=== PATIENT | female | born 1965 | race Caucasian/White ===

== ENCOUNTER 2021-09-12 12:48 | Observation (INO) ==
[2021-09-12 14:49] LABS: Basophils # 0.1 K/mcL (0.0-0.2); Basophils % 0.5 %; Eosinophils % 0.1 %; Hematocrit 46.6 % (35.3-44.9); Hemoglobin 15.1 g/dL (11.5-15.4); Immature Granulocytes % 0.5 % (0-4); Lymphocytes # 1.3 K/mcL (0.6-4.6); Lymphocytes % 7.2 %; Mean Corpuscular HGB Conc 32.4 g/dL (31.6-35.5); Mean Corpuscular Hemoglobin 28.9 pg (28.0-33.3); Mean Corpuscular Volume 89.1 fL (83.0-100.0); Mean Platelet Volume 9.1 fL (9.4-12.4); Monocytes # 1.3 K/mcL (0.0-1.3); Monocytes % 7.6 %; Neutrophils # 14.9 K/mcL (1.6-8.9); Platelet Count 390 K/mcL (140-400); Red Blood Count 5.23 M/mcL (3.82-4.97); Red Cell Distribution Width 14.2 % (11.5-14.5); Segmented Neutrophils % 84.1 %; White Blood Count 17.7 K/mcL (4.3-11.1)
[2021-09-12 14:58] LABS: INR 1.1; Prothrombin Time 12.6 Seconds (9.4-12.1)
[2021-09-12 15:01] LABS: Activated Partial Thrombo Time 37.7 Seconds (26.0-36.0)
[2021-09-12 15:13] LABS: Alanine Aminotransferase 27 Units/L (7-52); Albumin 4.5 g/dL (3.5-5.7); Albumin/Globulin Ratio 1.6 (1.1-2.2); Alkaline Phosphatase 77 Units/L (34-104); Aspartate Amino Transferase 89 Units/L (13-39); BUN/Creatinine Ratio 10 (6-26); Bilirubin,Direct 0.1 mg/dL (0.0-0.2); Bilirubin,Indirect 0.5 mg/dL (0.0-1.0); Bilirubin,Total 0.6 mg/dL (0.3-1.0); Blood Urea Nitrogen 6 mg/dL (6-20); Calcium 9.9 mg/dL (8.6-10.3); Carbon Dioxide 28 mEq/L (23-29); Chloride 98 mEq/L (98-107); Ethanol < 10 mg/dL (Less than 10); Globulin 2.8 g/dL (2.4-3.5); Glucose 105 mg/dL (70-105); Osmolality,Calculated 276 (280-300); Potassium 4.2 mEq/L (3.5-5.1); Sodium 134 mEq/L (136-145); Total Protein 7.3 g/dL (6.4-8.9); Troponin I < 0.03 ng/mL (< 0.04); eGFR For African Americans > 60 (> 60); eGFR For Non-African Americans > 60 (> 60)
[2021-09-12] MEDS ORDERED: 0.9 % Sodium Chloride 1,000 ML IV ONE ×2 (15:41→15:43)
[2021-09-12] MEDS ORDERED: Nicotine 2 MG GUM BC PRN (16:43)
[2021-09-12] MEDS ORDERED: Ringers Solution, Lactated 1,000 ML IVC SCH (16:45)
[2021-09-12] MEDS ORDERED: Melatonin 3 MG TABLET PO PRN (17:08)
[2021-09-12] MEDS ORDERED: Ondansetron 4 MG/2 ML VIAL IVP PRN (17:08)
[2021-09-12] MEDS: Ringers Solution, Lactated 1,000 ML IVC SCH (18:22)
[2021-09-12] MEDS: Nicotine 14 MG PATCH.TD24 TD SCH (18:22)
[2021-09-12] MEDS: Acetaminophen 325 MG TABLET PO PRN (21:14)
[2021-09-13 01:35] LABS: Bilirubin,Urine Negative (Negative); Blood,Urine Negative (Negative); Clarity,Urine Clear (Clear); Color,Urine Light-Yellow (Yellow); Glucose,Urine (UA) Normal (Normal); Ketones,Urine Negative (Negative); Leukocyte Esterase,Urine Small (Negative); Mucus,Urine Few per lpf (None-Few); Nitrite,Urine Negative (Negative); PH,Urine 6.5 pH Units (5.0-8.0); Protein,Urine Trace mg/dL (Neg-Trace); RBC,Urine 0-3 per hpf (0-3); Specific Gravity,Urine 1.013 (1.010-1.025); Squamous Epithelial Cell,Urine Few per hpf (None-Few); Urobilinogen,Urine Normal (Normal)
[2021-09-13 01:38] LABS: Amphetamine Screen,Urine Negative ng/mL (Cutoff=1000); Barbiturate Screen,Urine Negative ng/mL (Cutoff=200); Benzodiazepines Screen,Urine Positive ng/mL (Cutoff=200); Cannabinoid Screen,Urine Negative ng/mL (Cutoff = 50); Cocaine Screen,Urine Negative ng/mL (Cutoff= 300); Opiate Screen,Urine Negative ng/mL (Cutoff=300); Phencyclidine Screen,Urine Negative ng/mL (Cutoff=25)
[2021-09-13 01:50] LABS: Hematocrit 39.9 % (35.3-44.9); Mean Corpuscular HGB Conc 33.1 g/dL (31.6-35.5); Mean Corpuscular Hemoglobin 29.3 pg (28.0-33.3); Mean Corpuscular Volume 88.7 fL (83.0-100.0); Mean Platelet Volume 9.5 fL (9.4-12.4); Platelet Count 374 K/mcL (140-400); Red Cell Distribution Width 14.2 % (11.5-14.5); White Blood Count 11.9 K/mcL (4.3-11.1)
[2021-09-13 01:52] LABS: Hemoglobin 13.2 g/dL (11.5-15.4)
[2021-09-13] MEDS: ALPRAZolam 1 MG TABLET PO SCH ×2 (02:09→08:17)
[2021-09-13 02:11] LABS: BUN/Creatinine Ratio 8 (6-26); Blood Urea Nitrogen 6 mg/dL (6-20); Calcium 8.6 mg/dL (8.6-10.3); Carbon Dioxide 27 mEq/L (23-29); Chloride 98 mEq/L (98-107); Creatine Kinase 5417 Units/L (30-223); Glucose 135 mg/dL (70-105); Magnesium 1.5 mg/dL (1.6-2.6); Osmolality,Calculated 276 (280-300); Potassium 3.3 mEq/L (3.5-5.1); Sodium 133 mEq/L (136-145); eGFR For African Americans > 60 (> 60); eGFR For Non-African Americans > 60 (> 60)
[2021-09-13] MEDS: Ringers Solution, Lactated 1,000 ML IVC SCH ×2 (02:57→10:55)
[2021-09-13] MEDS: Acetaminophen 325 MG TABLET PO PRN ×3 (08:16→21:40)
[2021-09-13] MEDS: Nicotine 14 MG PATCH.TD24 TD SCH (08:17)
[2021-09-13] MEDS ORDERED: Potassium Phosphate 44 MEQ in 0.9 % Sodium Chloride 250 ML IVPB ONE (09:11)
[2021-09-13] MEDS: lamoTRIgine 100 MG TABLET PO SCH ×2 (10:52→21:41)
[2021-09-13] MEDS: atenoloL 25 MG TABLET PO SCH (10:53)
[2021-09-13] MEDS: Tiotropium 10 INH DOSE IH SCH (11:10)
[2021-09-13] MEDS: Ziprasidone 80 MG CAPSULE PO SCH ×2 (11:48→21:40)
[2021-09-13] MEDS: *HR* Enoxaparin 40 MG/0.4 ML SYRINGE SQ SCH (13:59)
[2021-09-13] MEDS: ALPRAZolam 0.5 MG TABLET PO SCH (21:41)
[2021-09-14] MEDS: Ringers Solution, Lactated 1,000 ML IVC SCH ×2 (00:34→08:18)
[2021-09-14 07:10] LABS: BUN/Creatinine Ratio 7 (6-26); Blood Urea Nitrogen 4 mg/dL (6-20); Calcium 8.9 mg/dL (8.6-10.3); Carbon Dioxide 33 mEq/L (23-29); Chloride 105 mEq/L (98-107); Creatine Kinase 963 Units/L (30-223); Glucose 112 mg/dL (70-105); Osmolality,Calculated 294 (280-300); Potassium 3.6 mEq/L (3.5-5.1); Sodium 143 mEq/L (136-145); eGFR For African Americans > 60 (> 60); eGFR For Non-African Americans > 60 (> 60)
[2021-09-14] MEDS: Tiotropium 10 INH DOSE IH SCH (07:50)
[2021-09-14] MEDS: atenoloL 25 MG TABLET PO SCH (08:19)
[2021-09-14] MEDS: Nicotine 14 MG PATCH.TD24 TD SCH (08:19)
[2021-09-14] MEDS: ALPRAZolam 0.5 MG TABLET PO SCH (08:19)
[2021-09-14] MEDS: lamoTRIgine 100 MG TABLET PO SCH (08:19)
[2021-09-14] MEDS: *HR* Enoxaparin 40 MG/0.4 ML SYRINGE SQ SCH (08:21)
[2021-09-14] MEDS: Ziprasidone 80 MG CAPSULE PO SCH (08:21)
[2021-09-14] MEDS ORDERED: Budesonide/Formoterol 160/4.5 1 PUFF INH IH SCH (10:00)
[2021-09-14 10:18] LABS: Estimated Average Glucose 131 mg/dl; Hemoglobin A1C 6.2 %
[2021-09-14 10:38] VITALS: BP 143/84; PULSE 79; TEMP 97.6; O2SAT 92
== END 2021-09-14 12:13 | disposition home or self-care (01) ==
LOC: EMEROOARM 12:48 → 3ANU 12:48 → SUATTDRO 16:14 → 3ANU 17:17
PROVIDERS: ADMIT Internal Medicine; ATTEND Internal Medicine